=== PATIENT | male | born 1990 | race African-American/Black ===

== ENCOUNTER 2019-12-26 03:05 | Emergency (ER) | payer MEDICAID ==
[~2019-12-26] VITALS: Ht 167.6 cm; Wt 62.0 kg
[2019-12-26 03:09] VITALS: BP 144/107
--- NOTE | 2019-12-26 03:21 | NUR ---
MD AT BEDSIDE TO ASSESS PT
--- NOTE | 2019-12-26 03:21 | NUR ---
THIS IS A 29Y M THAT REPORTS TINGLLING IN HIS FACE OFF AND ON X1 WK. PT ALSO REPORTS RECENT CHEST TIGHNESS. PT RESTING ON HUBERT CHACON. CALL LIGHT IN REACH
--- NOTE | 2019-12-26 03:37 | NUR ---
Patient/Caregiver given discharge instructions and they have confirmed that they understand the instructions. Patient ambulatory with steady gait.
== END 2019-12-26 03:38 ==
LOC: ED 03:32
DX: R20.2 Paresthesia of skin (principal); R53.83 Other fatigue
CPT/HCPCS: 99281